=== PATIENT | male | born 2000 | race Caucasian/White ===

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

== ENCOUNTER 2021-12-03 04:16 | Day surgery (SDC) | payer OTHER ==
[2021-11-27 16:37] VITALS: BMI 28.5
[2021-12-03] MEDS ORDERED: DEXAMETHASONE SOD PHOSPHATE 4 MG/1 ML VIAL ONE (07:05)
[2021-12-03] MEDS ORDERED: ROCURONIUM BROMIDE 50 MG/5 ML SYRINGE ONE (07:05)
[2021-12-03] MEDS ORDERED: LIDOCAINE HCL/PF 2% SDV 5ML VIAL ONE (07:05)
[2021-12-03] MEDS ORDERED: SUCCINYLCHOLINE CHLORIDE 200 MG/10 ML SYRINGE ONE (07:05)
[2021-12-03] MEDS ORDERED: MIDAZOLAM HCL 2 MG/2 ML SINGLE DOSE VIAL ONE (07:05)
[2021-12-03] MEDS ORDERED: PROPOFOL 20 ML ONE ×2 (07:05→08:08)
[2021-12-03] MEDS ORDERED: OXYMETAZOLINE 0.05% NASAL SOLUTION 15 ML BOTTLE NS ONE (08:00)
[2021-12-03] MEDS ORDERED: ALBUTEROL SO4 HFA INHALER IH ONE (08:06)
[2021-12-03] MEDS ORDERED: ceFAZolin SODIUM 1 GM VIAL IVPB ONE (08:17)
[2021-12-03] MEDS ORDERED: ceFAZolin SODIUM 1 GM VIAL ONE (08:18)
[2021-12-03] MEDS ORDERED: NEOSTIGMINE METHYLSULFATE 0.5 MG/ML - 10 ML MDV ONE (09:06)
[2021-12-03] MEDS ORDERED: GLYCOPYRROLATE 0.2 MG/1 ML VIAL ONE (09:07)
[2021-12-03] MEDS ORDERED: oxyCODONE HCL 5 MG TABLET PO PRN (09:32)
[2021-12-03] MEDS ORDERED: ONDANSETRON 4 MG/2 ML VIAL IVPUSH PRN (09:32)
[2021-12-03] MEDS ORDERED: LACTATED RINGERS SOLUTION 1,000 ML IV SCH (09:45)
[2021-12-03 10:53] VITALS: BP 133/76; TEMP 98.9
[2021-12-03 13:07] VITALS: PULSE 99
== END 2021-12-03 12:05 | disposition home or self-care (01) ==
LOC: JASU-SURG 04:16
PROVIDERS: ATTEND Otolaryngology
PROC: 0CTQXZZ Resection of Adenoids, External Approach (ICD-10-PCS; 2021-12-03)
PROC: 0CBNXZZ Excision of Uvula, External Approach (ICD-10-PCS; 2021-12-03)
PROC: 0CTPXZZ Resection of Tonsils, External Approach (ICD-10-PCS; principal; 2021-12-03 08:00)
DX: G47.33 Obstructive sleep apnea (adult) (pediatric) (principal)
CPT/HCPCS: 82962; 88304-TC; 94760

== ENCOUNTER 2023-01-01 10:05 | Emergency (ER) | payer OTHER ==
[2023-01-01 10:31] VITALS: RESP 18; BMI 29.0
[2023-01-01] MEDS ORDERED: KETOROLAC TROMETHAMINE 15 MG/ML VIAL IVPUSH ONE (11:21)
[2023-01-01] MEDS ORDERED: KETOROLAC TROMETHAMINE 15 MG/ML VIAL ONE (11:23)
[2023-01-01 12:08] LABS: BASO % 0.5 % (0-2.0); EOS % 1.9 % (0-4.5); HEMATOCRIT 45.1 % (35.4-49); HEMOGLOBIN 15.1 GM/dL (11.7-16.9); MCH 28.4 pg (25.7-33.7); MCHC 33.4 g/dl (32.0-35.9); MEAN PLT VOLUME 8.1 fl (7.5-11.1); MONO % 6.9 % (3.8-10.2); NEUT % 72.7 % (42.8-82.8); PLATELET COUNT 311 10^3/uL (134-434); RDW 14.2 % (11.9-15.9); WHITE BLOOD COUNT 10.6 K/mm3 (4.0-10.0)
[2023-01-01 12:25] LABS: ALBUMIN 4.3 g/dl (3.4-5.0); CALCIUM 10.1 mg/dL (8.5-10.1)
[2023-01-01 12:29] VITALS: BP 120/76; PULSE 93; TEMP 98
[2023-01-01 12:29] LABS: CREATININE 0.8 mg/dL (0.55-1.3)
[2023-01-01 12:30] LABS: BILIRUBIN,TOTAL 0.5 mg/dL (0.2-1); TOT PROT 7.7 g/dl (6.4-8.2)
== END 2023-01-01 12:53 | disposition home or self-care (01) ==
LOC: JER 10:05
PROC: 3E033GC Introduction of Other Therapeutic Substance into Peripheral Vein, Percutaneous Approach (ICD-10-PCS; principal; 2023-01-01)
DX: R07.9 Chest pain, unspecified (principal)
CPT/HCPCS: 36415; 71046-TC-FY; 80053; 84484; 85025; 85379; 93005; 93010; 99285-25

== ENCOUNTER 2023-02-04 15:15 | Emergency (ER) | payer OTHER ==
[2023-02-04 15:29] VITALS: BP 127/78; PULSE 79; RESP 18; TEMP 98.1; BMI 66.7
[2023-02-04] MEDS ORDERED: SODIUM CHLORIDE 0.9% 500 ML INFUS.BAG IV ONE (15:51)
[2023-02-04] MEDS ORDERED: ACETAMINOPHEN 1000 MG/100 ML BAG IVPB ONE (15:51)
[2023-02-04] MEDS ORDERED: ACETAMINOPHEN INJECTION 100 ML IVPB ONE (16:03)
[2023-02-04 16:58] LABS: BASO % 0.8 % (0-2.0); EOS % 1.4 % (0-4.5); HEMATOCRIT 43.6 % (35.4-49); HEMOGLOBIN 14.3 GM/dL (11.7-16.9); MCH 27.4 pg (25.7-33.7); MCHC 32.8 g/dl (32.0-35.9); MEAN CELL VOLUME 83.6 fl (80-96); MEAN PLT VOLUME 7.9 fl (7.5-11.1); MONO % 8.3 % (3.8-10.2); NEUT % 66.5 % (42.8-82.8); PLATELET COUNT 317 10^3/uL (134-434); RBC 5.21 M/mm3 (4.00-5.60); RDW 13.6 % (11.9-15.9); WHITE BLOOD COUNT 10.9 K/mm3 (4.0-10.0)
[2023-02-04 17:02] LABS: URINE APPEARANCE CLEAR; URINE BILIRUBIN NEGATIVE (NEGATIVE); URINE COLOR YELLOW; URINE GLUCOSE (UA) NEGATIVE (NEGATIVE); URINE KETONE NEGATIVE (NEGATIVE); URINE LEUK ESTERASE NEGATIVE (NEGATIVE); URINE NITRITE NEGATIVE (NEGATIVE); URINE PROTEIN NEGATIVE (NEGATIVE); URINE UROBILINOGEN 0.2 mg/dL (0.2-1.0)
[2023-02-04 17:21] LABS: CHLORIDE 106 mmol/L (98-107); SODIUM 140 mmol/L (136-145)
[2023-02-04 17:23] LABS: ALBUMIN 4.3 g/dl (3.4-5.0); ANION GAP 3 MMOL/L (8-16); CALCIUM 9.7 mg/dL (8.5-10.1); CO2 30 mmol/L (21-32); GLUCOSE,RANDOM 98 mg/dL (74-106)
[2023-02-04 17:24] LABS: LIPASE 49 U/L (73-393)
[2023-02-04 17:26] LABS: CREATININE 0.8 mg/dL (0.55-1.3); SGOT/AST 42 U/L (15-37); SGPT/ALT 92 U/L (13-61)
[2023-02-04 17:28] LABS: TOT PROT 7.5 g/dl (6.4-8.2)
[2023-02-04 17:29] LABS: ALK PHOS 117 U/L (45-117)
[2023-02-04 17:34] LABS: BILIRUBIN,TOTAL 0.4 mg/dL (0.2-1)
[2023-02-04 18:07] LABS: ERYTHROCYTE SEDIMENTATION RATE 2 mm/hr (0-10)
== END 2023-02-04 19:58 | disposition home or self-care (01) ==
LOC: JER 15:15
PROC: 3E033NZ Introduction of Analgesics, Hypnotics, Sedatives into Peripheral Vein, Percutaneous Approach (ICD-10-PCS; principal; 2023-02-04)
DX: R10.30 Lower abdominal pain, unspecified (principal)
CPT/HCPCS: 36415; 74177-TC; 80053; 81003; 83690; 85025; 85651; 86140; 87077; 87086; 99285-25; Q9967

== ENCOUNTER 2023-03-30 12:42 | Emergency (ER) | payer OTHER ==
[2023-03-30 12:57] VITALS: BP 139/80; PULSE 91; RESP 20; TEMP 99; BMI 38.9
[2023-03-30] MEDS ORDERED: ACETAMINOPHEN 500 MG TABLET (FP) PO ONE (14:16)
[2023-03-30] MEDS ORDERED: PANTOPRAZOLE 20 MG TABLET PO ONE ×2 (14:16→14:27)
[2023-03-30] MEDS ORDERED: MAG HYDROX/AL HYDROX/SIMETH -MYLANTA- ORAL SUSPENSION PO ONE (14:16)
[2023-03-30] MEDS ORDERED: MAG HYDROX/AL HYDROX/SIMETH 30 ML UNIT-DOSE CUP ONE (14:27)
[2023-03-30] MEDS ORDERED: ACETAMINOPHEN 500 MG TABLET (FP) ONE (14:28)
== END 2023-03-30 15:49 | disposition home or self-care (01) ==
LOC: JERFT 12:42
DX: R06.02 Shortness of breath (principal); R10.13 Epigastric pain; R12 Heartburn; K29.00 Acute gastritis without bleeding
CPT/HCPCS: 93005; 93010; 99283-25